=== PATIENT | male | born 1955 | race Caucasian/White ===

== ENCOUNTER 2022-05-24 17:05 | Inpatient (IN) | payer MEDICARE, OTHER ==
[2022-05-24] MEDS ORDERED: DOPamine 400 MG/D5W 250 ML 250 ML ONE (17:10)
[2022-05-24] MEDS ORDERED: Atropine Sulfate 1 mg/10 ml Syringe ONE (17:50)
[2022-05-24] MEDS ORDERED: Ondansetron PF 4 MG/2 ML Vial IVP PRN (18:25)
[2022-05-24] MEDS ORDERED: DOPamine 400 MG/D5W 250 ML 250 ML IVPB SCH (18:30)
[2022-05-24 18:37] VITALS: BMI 27.8
[2022-05-24 18:46] LABS: Free T4 (Free Thyroxine) 0.88 ng/dL (0.70-1.48); Thyroid Stimulating Hormone 0.974 uIU/mL (0.35-4.94)
[2022-05-24 18:50] LABS: CKMB 30.3 ng/mL (0-6.6)
[2022-05-24 19:40] LABS: SARS-CoV-2 NAA Rapid Test Not Detected (NotDetected)
[2022-05-24 21:09] LABS: Troponin I 6.457 ng/mL (< 0.028)
[2022-05-24] MEDS ORDERED: Nitroglycerin 0.4 MG TAB (25 Tab Bottle) SL PRN (21:40)
[2022-05-24] MEDS ORDERED: Heparin 25,000 units/D5W 500 ML IV SCH (21:45)
[2022-05-24] MEDS ORDERED: Aspirin 325 MG TAB PO SCH (21:45)
[2022-05-24] MEDS ORDERED: Nitroglycerin 2% Ointment 1 INCH/1 GM Packet TOP SCH (21:45)
[2022-05-24] MEDS ORDERED: Heparin 10,000 UNITS/ 10 ML VIAL SLOW IVP SCH (21:45)
[2022-05-25 00:05] LABS: Troponin I 10.817 ng/mL (< 0.028)
[2022-05-25 05:00] LABS: #Basophils 0.1 10x3/uL (0.0-0.2); #Eosinphils 0.3 10x3/uL (0.0-0.5); #Monocytes 0.7 10x3/uL (0.0-1.1); #Neutrophils 5.2 10x3/uL (1.5-8.4); %Basophils 0.7 % (0.0-2.0); %Eosinophils 3.7 % (0.0-6.0); %Lymphocytes 27.5 % (18.0-47.0); %Monocytes 8.1 % (0.0-10.0); %Neutrophils 59.9 % (40.0-75.0); Hemoglobin 12.7 g/dL (13.5-17.5); Mean Corpuscular HGB CONC 34.4 g/dL (32.0-36.0); Mean Corpuscular Hemoglobin 31.1 pg (27.0-33.0); Mean Corpuscular Volume 90.2 fl (81.2-95.1); Mean Platelet Volume 10.2 fl (7.4-10.4); Platelet Count 205 10x3/uL (150-450); RBC Distribution Width 13.5 % (11.5-14.5); Red Blood Cell (RBC) Count 4.09 10x6/uL (4.32-5.72); White Blood Cell (WBC) Count 8.7 10x3/uL (3.5-10.5)
[2022-05-25 05:01] LABS: Anion Gap 14 mmol/L (10-20); BUN (Urea Nitrogen) 14 mg/dL (8.4-25.7); Calc. Creatinine Clearance 122 mL/min (70-130); Carbon Dioxide 21 mmol/L (23-31); Cardiac Risk 5.6 (Less than 4.5); Chloride 110 mmol/L (98-107); Cholesterol 270 mg/dl (< 200 Desired); Estimated GFR 98; Glucose 116 mg/dL (80-115); HDL Cholesterol 48 mg/dL (>60 Neg Risk); LDL Cholesterol, Calculated 203 mg/dL; Sodium 141 mmol/L (136-145); Triglycerides 95 mg/dL (Less than 150)
[2022-05-25] MEDS: Nitroglycerin 2% Ointment 1 INCH/1 GM Packet TOP SCH ×3 (06:31→23:23)
[2022-05-25] MEDS ORDERED: Nitroglycerin 50 MG/250 ML BOT 250 ML ONE (07:33)
[2022-05-25] MEDS ORDERED: Heparin 10,000 UNITS/ 10 ML VIAL ONE (07:34)
[2022-05-25] MEDS ORDERED: Lidocaine 1% (PF) 30 ML VIAL ONE (07:34)
[2022-05-25] MEDS ORDERED: Verapamil 5 MG/2 ML VIAL ONE (07:35)
[2022-05-25] MEDS ORDERED: Adenosine 6 MG/2 ML VIAL ONE (07:36)
[2022-05-25] MEDS ORDERED: Bivalirudin 250 MG VIAL ONE (07:36)
[2022-05-25] MEDS: Aspirin Chewable 81 MG TAB PO SCH (07:59)
[2022-05-25] MEDS ORDERED: Iopamidol 300 61% 100 ML VIAL FS ONE (08:10)
[2022-05-25] MEDS ORDERED: Fentanyl 100 MCG/2 ML VIAL ONE (08:12)
[2022-05-25] MEDS ORDERED: Midazolam HCl 2 mg/2 ml Vial ONE (08:12)
[2022-05-25] MEDS ORDERED: Atropine Sulfate 0.4 mg/1 ml Vial ONE (08:35)
[2022-05-25 16:15] VITALS: BP 128/61
[2022-05-25 19:11] VITALS: TEMP 99.2
[2022-05-25] MEDS: Acetaminophen 325 MG TAB PO PRN (19:11)
[2022-05-26 03:30] LABS: #Basophils 0.1 10x3/uL (0.0-0.2); #Eosinphils 0.4 10x3/uL (0.0-0.5); #Monocytes 0.7 10x3/uL (0.0-1.1); #Neutrophils 4.2 10x3/uL (1.5-8.4); %Basophils 0.9 % (0.0-2.0); %Eosinophils 4.6 % (0.0-6.0); %Lymphocytes 29.6 % (18.0-47.0); %Monocytes 9.2 % (0.0-10.0); %Neutrophils 55.4 % (40.0-75.0); Hemoglobin 12.4 g/dL (13.5-17.5); Mean Corpuscular HGB CONC 34.1 g/dL (32.0-36.0); Mean Corpuscular Hemoglobin 30.8 pg (27.0-33.0); Mean Corpuscular Volume 90.5 fl (81.2-95.1); Mean Platelet Volume 9.8 fl (7.4-10.4); Platelet Count 174 10x3/uL (150-450); RBC Distribution Width 13.3 % (11.5-14.5); Red Blood Cell (RBC) Count 4.02 10x6/uL (4.32-5.72); White Blood Cell (WBC) Count 7.6 10x3/uL (3.5-10.5)
[2022-05-26 03:46] LABS: Anion Gap 13 mmol/L (10-20); BUN (Urea Nitrogen) 16 mg/dL (8.4-25.7); Calc. Creatinine Clearance 112 mL/min (70-130); Calcium 8.8 mg/dL (7.8-10.44); Carbon Dioxide 24 mmol/L (23-31); Chloride 109 mmol/L (98-107); Estimated GFR 95; Glucose 105 mg/dL (80-115); Potassium 4.1 mmol/L (3.5-5.1); Sodium 142 mmol/L (136-145)
[2022-05-26] MEDS: Nitroglycerin 2% Ointment 1 INCH/1 GM Packet TOP SCH (06:56)
[2022-05-26] MEDS: Aspirin Chewable 81 MG TAB PO SCH (08:02)
[2022-05-26] MEDS: Acetaminophen 325 MG TAB PO PRN (08:02)
== END 2022-05-26 13:15 | disposition short-term general hospital (02) | DRG 282 ==
LOC: CSHERS 17:05 → CSHICU 17:53
PROVIDERS: ADMIT Internal Medicine; ATTEND Family Medicine
PROC: 4A023N7 Measurement of Cardiac Sampling and Pressure, Left Heart, Percutaneous Approach (ICD-10-PCS; principal; 2022-05-25)
PROC: B2111ZZ Fluoroscopy of Multiple Coronary Arteries using Low Osmolar Contrast (ICD-10-PCS; 2022-05-25)
PROC: B2151ZZ Fluoroscopy of Left Heart using Low Osmolar Contrast (ICD-10-PCS; 2022-05-25)
DX: I21.4 Non-ST elevation (NSTEMI) myocardial infarction (principal); E78.5 Hyperlipidemia, unspecified; I49.5 Sick sinus syndrome; Z20.822 Contact with and (suspected) exposure to COVID-19; I10 Essential (primary) hypertension; Z79.82 Long term (current) use of aspirin; Z79.899 Other long term (current) drug therapy; Z88.8 Allergy status to other drugs, medicaments and biological substances; Z98.890 Other specified postprocedural states; Z82.49 Family history of ischemic heart disease and other diseases of the circulatory system
CPT/HCPCS: 36415; 80048; 80061; 82553; 83036; 83735; 84439; 84443; 85025; 85730; 93005; 93010; 93458; 94760; 99152; 99153; C1769; C1894; J0153; J0461; J0583; J1265; J1644; J2001; J2250; J3010; Q9967; U0002